=== PATIENT | female | born 1995 | race Hispanic/Latino ===

== ENCOUNTER 2017-09-12 21:53 | Emergency (ER) | payer BC ==
[~2017-09-12] VITALS: Ht 157.5 cm; Wt 52.4 kg
[~2017-09-12 21:53] MED LIST: BENADRYL 50MG C50 MG OR; CELEXA40 MG PO; GEODON60 MG OR; LAMICTAL150 M1 OR; LITHIUM CARB300 MG PO; NO HOEM MEDS; TUBERSOL5 MG/0.1 M ID; ZOLOFT100 MG OR
[2017-09-13] MEDS ORDERED: ZOFRAN ODT4 MG PO (01:36)
[2017-09-13 02:30] VITALS: BP 116/69
== END 2017-09-13 02:25 | disposition home or self-care (01) | DRG 914 ==
LOC: ED 21:53
DX: S09.90XA Unspecified injury of head, initial encounter (principal); R11.0 Nausea; R51 Headache; W00.0XXA Fall on same level due to ice and snow, initial encounter; Y93.21 Activity, ice skating; Y92.330 Ice skating rink (indoor) (outdoor) as the place of occurrence of the external cause

== ENCOUNTER 2018-04-02 15:35 | Emergency (ER) | payer OTHER, BC ==
[~2018-04-02] VITALS: Ht 157.5 cm; Wt 52.3 kg
[~2018-04-02 15:35] MED LIST changes: +ZOFRAN ODT4 MG PO
[2018-04-02] MEDS ORDERED: JUNEL 1.5/30 PO (15:59)
[2018-04-02 16:25] LABS: URINE BILIRUBIN - DIPSTICK NEGATIVE (NEGATIVE); URINE BLOOD DIPSTICK NEGATIVE (NEGATIVE); URINE CLARITY CLEAR; URINE COLOR YELLOW; URINE GLUCOSE - DIPSTICK NEGATIVE (NEGATIVE); URINE KETONE NEGATIVE (NEGATIVE); URINE LEUK ESTERASE NEGATIVE (Negative); URINE NITRITE - DIPSTICK NEGATIVE (Negative); URINE PROTEIN - DIPSTICK NEGATIVE (NEG-TRACE); URINE SPECIFIC GRAVITY <=1.005; URINE UROBILINOGEN - DIPSTICK 0.2 E.U./dL (0.2)
[2018-04-02 17:30] VITALS: BP 116/78
== END 2018-04-02 17:30 | disposition home or self-care (01) | DRG 552 ==
LOC: ED 15:35
DX: M54.2 Cervicalgia (principal); M54.5 Low back pain; F17.210 Nicotine dependence, cigarettes, uncomplicated; V49.40XA Driver injured in collision with unspecified motor vehicles in traffic accident, initial encounter

== ENCOUNTER 2018-07-04 11:20 | Emergency (ER) | payer BC ==
[~2018-07-04] VITALS: Ht 157.5 cm; Wt 52.0 kg
[~2018-07-04 11:20] MED LIST changes: +JUNEL 1.5/30 PO
[2018-07-04] MEDS ORDERED: JUNEL PO (11:36)
[2018-07-04 11:59] LABS: URINE BILIRUBIN - DIPSTICK NEGATIVE (NEGATIVE); URINE BLOOD DIPSTICK SMALL (NEGATIVE); URINE COLOR YELLOW; URINE GLUCOSE - DIPSTICK NEGATIVE (NEGATIVE); URINE KETONE TRACE mg/dL (NEGATIVE); URINE LEUK ESTERASE NEGATIVE (NEGATIVE); URINE NITRITE - DIPSTICK NEGATIVE (Negative); URINE PH 5.5 (4.5-8.0); URINE PROTEIN - DIPSTICK NEGATIVE (NEG-TRACE); URINE SPECIFIC GRAVITY 1.025; URINE UROBILINOGEN - DIPSTICK 0.2 E.U./dL (0.2)
[2018-07-04 12:04] LABS: URINE CLARITY SL CLOUDY
[2018-07-04 12:40] LABS: IMMATURE GRANULOCYTES 0.6 % (0.0-5.0); MEAN CELL VOLUME 83.5 fL CALC (80.0-100.0); MEAN CORPUSCULAR HGB 26.6 pG CALC (26.0-32.0); MEAN CORPUSCULAR HGB CONC 31.8 g/L CALC (32.0-36.0); NEUT# 7.67 thou/uL (2.00-7.15); RED BLOOD COUNT 5.04 mill/uL (4.20-5.60); RED CELL DISTRI WIDTH 16.3 % (11.5-15.5)
[2018-07-04 12:41] LABS: HEMATOCRIT 42.1 % (37.0-47.0); HEMOGLOBIN 13.4 g/dl (12.0-16.0)
[2018-07-04 12:53] LABS: ALBUMIN 4.7 g/dL (3.2-5.0); ALKALINE PHOSPHATASE 40 u/l (38-126); BILIRUBIN, TOTAL 0.7 mg/dL (0.0-1.4); BUN 12 mg/dL (7-17); BUN/CREATININE RATIO 14 (12-20 (CALC)); CARBON DIOXIDE 25 mmol/l (22-30); CHLORIDE 104 mmol/l (95-108); CREATININE 0.9 mg/dL (0.5-1.0); GFR > 60 ML/MIN (>=60 (CALC)); GFR FOR AFR.AMER. > 60 ML/MIN (>=60 (CALC)); LIPASE 28 u/l (23-300); SGOT/AST 21 u/l (14-36); SODIUM 143 mmol/l (137-146); TOTAL PROTEIN 7.8 g/dL (6.3-8.2)
[2018-07-04 12:54] LABS: ANION GAP 19 (6-22 (CALC)); POTASSIUM 4.6 mmol/l (3.5-5.1)
[2018-07-04] MEDS ORDERED: ONDANSETRON4 MG PO (13:38)
[2018-07-04 13:41] VITALS: BP 130/87
== END 2018-07-04 13:51 | disposition home or self-care (01) | DRG 392 ==
LOC: ED 11:20
PROVIDERS: Family Medicine
DX: K52.9 Noninfective gastroenteritis and colitis, unspecified (principal); F17.200 Nicotine dependence, unspecified, uncomplicated
CPT/HCPCS: Q9967